=== PATIENT | male | born 1960 | race Caucasian/White ===

== ENCOUNTER 2019-07-20 08:08 | Inpatient (IN) | payer MEDICAID, OTHER ==
[~2019-07-20] VITALS: Ht 180.3 cm; Wt 91.7 kg
[~2019-07-20 08:08] MED LIST: ACET325T33 PO; BACTDS PO; ELIM TOP; IBUP-1544 PO; PERM120L5 TP; PRED20TA PO; TRIA15CR55 TOP
[2019-07-20] MEDS ORDERED: SOD CHLORIDE 0.9% 1,000 ML IV STA (09:39)
[2019-07-20] MEDS ORDERED: ONDANSETRON 4 MG INJ IV STA (09:39)
[2019-07-20] MEDS ORDERED: morphine 4 MG/ML VIAL IV STA ×2 (09:39→17:02)
[2019-07-20] MEDS ORDERED: AMPICILLIN/SULB 3 GM/NS (PMX) 100 ML IVPB ONE (12:00)
[2019-07-20] MEDS ORDERED: ACETAMINOPHEN 325 MG TAB PO PRN ×2 (12:30→18:30)
[2019-07-20] MEDS ORDERED: ONDANSETRON 4 MG INJ IV PRN (12:30)
[2019-07-20] MEDS ORDERED: DOCUSATE SODIUM 100 MG CAP PO PRN (18:30)
[2019-07-20] MEDS ORDERED: NACL 0.9% 3 ML SYG IV SCH (18:30)
[2019-07-20 18:40] VITALS: Ht 180.3 cm; Wt 91.7 kg
[2019-07-20 18:58] VITALS: BP 135/71; PULSE 85; RESP 20
[2019-07-20] MEDS: SOD CHLORIDE 0.9% 1,000 ML IV SCH (20:05)
[2019-07-20] MEDS: PIPER-TAZO 3.375 GM IV (PMX) 100 ML IVPB SCH (23:22)
[2019-07-20] MEDS: morphine 2 MG INJ IV PRN (23:25)
[2019-07-21] MEDS: ZOLPIDEM 5 MG TAB PO PRN (00:08)
[2019-07-21] MEDS: SOD CHLORIDE 0.9% 1,000 ML IV SCH ×4 (02:13→19:27)
[2019-07-21 04:13] VITALS: BP 128/92; PULSE 85; RESP 18
[2019-07-21] MEDS: ONDANSETRON 4 MG INJ IV PRN (05:03)
[2019-07-21] MEDS: morphine 2 MG INJ IV PRN ×4 (05:04→21:51)
[2019-07-21] MEDS: PIPER-TAZO 3.375 GM IV (PMX) 100 ML IVPB SCH ×3 (05:09→17:34)
[2019-07-21 08:19] VITALS: BP 144/71; PULSE 82; RESP 18
[2019-07-21 15:27] VITALS: BP 142/80; PULSE 82; RESP 19
[2019-07-21 20:51] VITALS: BP 136/78; PULSE 88; RESP 18
[2019-07-22] MEDS: PIPER-TAZO 3.375 GM IV (PMX) 100 ML IVPB SCH ×4 (00:22→17:19)
[2019-07-22] MEDS: ZOLPIDEM 5 MG TAB PO PRN ×2 (01:26→20:43)
[2019-07-22 02:22] VITALS: BP 141/84; PULSE 87; RESP 18
[2019-07-22] MEDS ORDERED: LOPERAMIDE 2 MG CAP PO ONE (02:30)
[2019-07-22] MEDS: HYDROCODONE/APAP (5/325) TAB PO PRN ×3 (04:18→17:19)
[2019-07-22] MEDS: SOD CHLORIDE 0.9% 1,000 ML IV SCH ×3 (06:03→20:43)
[2019-07-22 08:06] VITALS: BP 147/82; PULSE 73; RESP 18
[2019-07-22] MEDS: LOPERAMIDE 2 MG CAP PO PRN (13:33)
[2019-07-22 20:47] VITALS: BP 135/80; PULSE 68; RESP 18
[2019-07-23] MEDS: PIPER-TAZO 3.375 GM IV (PMX) 100 ML IVPB SCH ×5 (00:37→23:55)
[2019-07-23] MEDS: HYDROCODONE/APAP (5/325) TAB PO PRN ×4 (00:38→20:06)
[2019-07-23] MEDS: ONDANSETRON 4 MG INJ IV PRN (00:40)
[2019-07-23 02:42] VITALS: BP 135/77; PULSE 74; RESP 18
[2019-07-23] MEDS: SOD CHLORIDE 0.9% 1,000 ML IV SCH (06:18)
[2019-07-23] MEDS: LOPERAMIDE 2 MG CAP PO PRN (08:09)
[2019-07-23 08:57] VITALS: BP 132/70; PULSE 58; RESP 18
[2019-07-23] MEDS: POTASSIUM CHLORIDE 30 MEQ in SOD CHLORIDE 0.9% 1,000 ML IV SCH (15:06)
[2019-07-23 15:14] VITALS: BP 148/87; PULSE 62; RESP 20
[2019-07-23 20:00] VITALS: BP 136/76; PULSE 73; RESP 20
[2019-07-23] MEDS: ZOLPIDEM 5 MG TAB PO PRN (22:20)
[2019-07-24 02:00] VITALS: BP 123/77; PULSE 91; RESP 18
[2019-07-24] MEDS: HYDROCODONE/APAP (5/325) TAB PO PRN ×3 (02:22→14:47)
[2019-07-24] MEDS: POTASSIUM CHLORIDE 30 MEQ in SOD CHLORIDE 0.9% 1,000 ML IV SCH ×3 (02:26→14:47)
[2019-07-24] MEDS: PIPER-TAZO 3.375 GM IV (PMX) 100 ML IVPB SCH ×3 (06:08→17:10)
[2019-07-24 07:41] VITALS: BP 152/87; PULSE 62; RESP 16
[2019-07-24 14:24] VITALS: BP 156/84; PULSE 64; RESP 16
== END 2019-07-24 18:10 | disposition home or self-care (01) | DRG 439 ==
LOC: E/R 08:08 → 2NE 12:29 → 5EC 07-22 14:49
PROVIDERS: ADMIT Internal Medicine; ATTEND Internal Medicine
DX: K85.10 Biliary acute pancreatitis without necrosis or infection (principal); R18.8 Other ascites; K80.20 Calculus of gallbladder without cholecystitis without obstruction; K57.30 Diverticulosis of large intestine without perforation or abscess without bleeding; M48.061 Spinal stenosis, lumbar region without neurogenic claudication; R59.0 Localized enlarged lymph nodes; D35.02 Benign neoplasm of left adrenal gland; D72.829 Elevated white blood cell count, unspecified; R19.7 Diarrhea, unspecified; D73.4 Cyst of spleen; Z87.891 Personal history of nicotine dependence
CPT/HCPCS: 36415; 74176; 76705; 80048; 80053; 81001; 83036; 83690; 83735; 84100; 85025; 86704; 86709; 86803; 87075; 87340; 96374; 96375; J0295; J2270; J2405; J2543; J3480; J7030